=== PATIENT | female | born 1990 | race Two or more races ===

== ENCOUNTER 2023-11-22 21:18 | Emergency (ER) | payer OTHER ==
[~2023-11-22] VITALS: Ht 170.2 cm; Wt 61.2 kg
[2023-11-22 22:18] VITALS: BP 121/70; TEMP 98.3; O2SAT 97
[2023-11-22] MEDS ORDERED: LIDOCAINE HCL/MPF 1% 30 ML VIAL IJ ONE (22:34)
[2023-11-22] MEDS ORDERED: SULF1TAB48 PO (23:15)
[2023-11-22] MEDS ORDERED: SULFAMETH/TRIMETH 800/160 MG 1 UDTAB TABLET ONE (23:20)
[2023-11-22] MEDS ORDERED: ONDANSETRON 4 MG TAB.RAPDIS ONE (23:20)
[2023-11-22] MEDS: ONDANSETRON HCL 4 MG/5 ML SOLUTION PO ONE (23:27)
[2023-11-22] MEDS: SULFAMETH/TRIMETH 800/160 MG 1 UDTAB TABLET PO ONE (23:27)
== END 2023-11-22 23:28 | disposition home or self-care (01) ==
LOC: ER 21:23
DX: L03.011 Cellulitis of right finger (principal); Z60.2 Problems related to living alone
CPT/HCPCS: 99283; 10060; J3490; Q0162